=== PATIENT | male | born 1960 | race Caucasian/White ===

== ENCOUNTER → 2024-09-13 09:50 | Outpatient (BNVA) | payer MEDICAID, SELFPAY | PROVIDERS: Visit Provider Student in an Organized Health Care Education/Training Program | DX: M25.561 Pain in right knee (principal); R03.0 Elevated blood-pressure reading, without diagnosis of hypertension; S83.8X1A Sprain of other specified parts of right knee, initial encounter; W22.8XXA Striking against or struck by other objects, initial encounter | CPT/HCPCS: 73560; 73565; 99203 ==

== ENCOUNTER 2024-09-23 11:57 | Outpatient (CLI) | payer MEDICAID, SELFPAY ==
--- NOTE | 2024-09-23 12:15 | MR_ITS ---
WS: [id number] MRI RIGHT KNEE HISTORY: knee pain COMPARISON: Radiograph 09/13/2024 Anterior cruciate ligament: ACL is thin with intermediate signal throughout. The very proximal ACL is not well identified. There is fluid adjacent to the ACL in the intercondylar notch which is abnormal. There is additional mild bowing of the central ACL towards the PCL involving the posterior fibers. Posterior cruciate ligament: Intact. Medial collateral ligament: Intact. Posterior lateral corner structures: Intact. Medial menisci: Intrasubstance degeneration but no tear in the posterior horn. Lateral meniscus: Intact. Normal signal, size and shape. Extensor mechanism: Distal quadriceps tendon and patellar tendons are intact. Fluid and soft tissue: Small suprapatellar joint effusion. Mild prepatellar bursitis. There is a very thin collection of fluid anterior to the patella. No Valverde's cyst. No significant subcutaneous edema. Osseous and articular structures: Patellofemoral compartment: Slight lateral subluxation of the patella. No fractures or marrow edema. Cartilage is well-preserved. Medial compartment: Mild narrowing. Cartilage is preserved. No fractures or marrow edema. Lateral compartment: Mild narrowing. No fractures or marrow edema. Intra-articular well-circumscribed bodies measuring 3 to 4 mm and fluid adjacent to the distal PCL. MR/MR knee RT wo con* [id number] IMPRESSION: 1. Abnormal ACL. ACL is small caliber with intermediate signal and fluid in th e intercondylar notch. There is mild bowing of the posterior fibers towards the PCL. Although there is no complete tear suspect there is a partial tear which may not be acute. Suspect scarring and gliosis causing deformity of the ACL. Th e proximal most ACL adjacent to the femur is not well identified either. Partia l age-indeterminate tear suspected. 2. Mild prepatellar bursitis. 3. Very slight lateral subluxation of the patella. 4. Mild narrowing of the medial and lateral compartments. No fracture or marro w edema. 5. No meniscal tear.
== END 2024-09-23 11:58 | disposition home or self-care (01) ==
PROVIDERS: PCP Nurse Practitioner Family; Visit Provider Student in an Organized Health Care Education/Training Program
DX: M25.561 Pain in right knee (principal); R93.6 Abnormal findings on diagnostic imaging of limbs; M70.41 Prepatellar bursitis, right knee
CPT/HCPCS: 73721

== ENCOUNTER → 2024-10-12 08:09 | Outpatient (BNVA) | payer MEDICAID, SELFPAY | PROVIDERS: PCP Nurse Practitioner Family; Visit Provider Student in an Organized Health Care Education/Training Program | DX: M17.11 Unilateral primary osteoarthritis, right knee (principal) | CPT/HCPCS: 20610 ==

== ENCOUNTER → 2025-01-17 09:01 | Outpatient (BNVA) | payer MEDICAID, SELFPAY | PROVIDERS: PCP Nurse Practitioner Family; Visit Provider Student in an Organized Health Care Education/Training Program | DX: M17.11 Unilateral primary osteoarthritis, right knee (principal); M23.41 Loose body in knee, right knee | CPT/HCPCS: 20610; 99213; J3301; J9999 ==

== ENCOUNTER → 2025-04-25 08:44 | Outpatient (BNVA) | payer MEDICAID, SELFPAY | PROVIDERS: PCP Nurse Practitioner Family; Visit Provider Student in an Organized Health Care Education/Training Program | DX: M17.11 Unilateral primary osteoarthritis, right knee (principal); M23.41 Loose body in knee, right knee | CPT/HCPCS: 99213 ==

== ENCOUNTER → 2025-05-24 08:59 | Outpatient (BNVA) | payer MEDICAID, SELFPAY | PROVIDERS: PCP Nurse Practitioner Family; Visit Provider Physician Assistant | DX: M17.11 Unilateral primary osteoarthritis, right knee (principal) | CPT/HCPCS: 20610; 99213; J3301; J9999 ==